=== PATIENT | male | born 1980 | race Two or more races ===

== ENCOUNTER 2025-02-09 10:51 | Outpatient (AMB) | payer OTHER, SELFPAY ==
--- NOTE | 2025-02-09 11:09 | A.OFFVIS_ITS ---
Intake Visit Reasons: fertility consult Intake Note: New Patient presents for initial visit for fertility consult Urology Medications: none Blood Thinner: none [employer] Required: Yes Accompanied by: Spouse Allergies No Known Allergies Allergy (Verified 02/09/25 11:32) HPI Comments Details: Lluvia is a very pleasant 44-year-old [place]olese-speaking male patient who was accompanied by his significant other at today's office visit. He presents to the office today as a new patient for infertility. In discussion with the patient today he reports having had follow-up with [facility] through [facility] and recommendations were made for urology referral as low motility and low morphology was noted on semen analysis from 08/28/2024 and 09/27. In review of patient's chart it appears labs 11/28 Testosterone 373 11/28 FSH 5.9 In discussion with the patient today he reports a longstanding he attempting to conceive over the last 20 years however has been unsuccessful. He discusses his has currently undergone infertility workup with [facility] however upon examination of his workup abnormalities within the semen analysis were noted. He denies having had any history of trauma. He denies any known genetic abnormalities, recreational drug use, smoking, and or alcohol abuse. We discussed potential causes of infetrtility as well as further work up to include labs and repeat semen analysis with fellows kit. All questions were answered. He otherwise denies any bothersome urinary issues. Plan For the current infertility issue as a result of the male partner's sperm motility and mobility problems, I propose conducting a comprehensive semen analysis using a specialized kit for a more detailed evaluation. The couple is informed about refraining from ejaculation in the days leading up to sample collection to ensure optimal results. Further diagnostic evaluation and potential reproductive interventions will be based on the analysis outcomes. Patient was informed and verbally consented to the use of an ambient scribe for clinic note documentation during this visit. Discussion Notes I thoroughly discussed the issue of infertility with the patient, focusing on the abnormal sperm motility and mobility of her partner. I recommended performing a detailed semen analysis using a specialized Amanda kit to obtain more information. The patient was instructed on the process of collecting and submitting the semen sample to ensure its integrity. Consent was obtained after outlining the procedure's rationale, benefits, and potential outcomes, including discussions around possible in vitro fertilization. The couple was also advised about the ideal timing and frequency of intercourse during the fertile period to enhance conception chances. Review of Systems Const All systems reviewed & are unremarkable except as noted in HPI and below Physical Exam Const General: cooperative, healthy appearing, comfortable, no acute distress, well developed, alert and awake Orientation/consciousness: patient oriented x3 Limitations: language barrier HEENT Head: Yes normal to inspection, Yes normocephalic and Yes atraumatic Ears: hearing grossly normal bilaterally Eyes General: appearance normal, both eyes and all related structures Neck Neck: Yes normal visual inspection and Yes trachea midline Chest Chest palpation & inspection: normal inspection of the chest Resp Effort & Inspection: normal respiratory effort and able to speak in complete sentences Cardio Rate: regular rate GI Inspection: Yes normal to inspection General: Yes no CVA tenderness Back/Spine/Pelvis Back: no CVA tenderness Skin General skin exam: no rashes or lesions noted Neuro General: patient oriented x3 Extrem General: Yes normal to inspection Psych Appearance: grossly normal and well kempt Mental Status: mental status grossly normal Speech and movement: Normal speech and movement present and Clear speech present Affect: normal affect Attitude: cooperative Thought process: Normal thought process present Thought content: Normal thought content present Insight: Fair insight present (Psych) Judgement: Fair judgement present (Psych) Results AMB Urinalysis, Automated UA Leukoctes 0 Kevin/uL Last Edit by [employer] on 02/09/25 11:34 UA Nitrite Last Edit by [employer] on 02/09/25 11:34 UA Urobilinogen 0.2 mg/dL Last Edit by [employer] on 02/09/25 11:34 UA Protein 0 mg/dL Last Edit by [employer] on 02/09/25 11:34 UA pH 6.0 Last Edit by [employer] on 02/09/25 11:34 UA Blood 0 Fab/uL Last Edit by [employer] on 02/09/25 11:34 UA Specific [place] 0 Last Edit by Yaw Chung on 02/09/25 11:34 UA Ketone Last Edit by Yaw Chung on 02/09/25 11:34 UA Bilirubin 0 mg/dL Last Edit by Yaw Chung on 02/09/25 11:34 UA Glucose 0 mg/dL Last Edit by Yaw Chung on 02/09/25 11:34 Results Reviewed Results Reviewed: Laboratory Last Values Urine pH (Auto) 6.0 02/09/25 11:33 Specific [place] (Auto) 0 02/09/25 11:33 Urine Protein (Auto) 0 mg/dL 02/09/25 11:33 Glucose (UA)(Auto) 0 mg/dL 02/09/25 11:33 Urine Blood (Auto) 0 Fab/uL 02/09/25 11:33 Urine Bilirubin (Auto) 0 mg/dL 02/09/25 11:33 Urine Urobilinogen (Auto) 0.2 mg/dL 02/09/25 11:33 Leukocyte Esterase (Auto) 0 Kevin/uL 02/09/25 11:33 Assessment & Plan Assessment & Plan (1) Infertility counseling: Code(s): Z31.69 - Encounter for other general counseling and advice on procreation Category: Medical Plan Previous records were reviewed Discussed obtaining fellows kit x2 for further assessment evaluation Will obtain labs as discussed. He denies any bothersome urinary issues or concerns. He reports to be happy with current voiding parameters. Follow-up with Dr. Jasmine in 3 months with fellows kit x2 to be completed; or sooner with any issues, concerns, and or questions. Orders: Orders Lutenizing Hormone Today Z31.69 - Encounter for other general counseling and advice on procreation Testosterone, Free/Total Today Z31.69 - Encounter for other general counseling and advice on procreation Follicle Stimulating Hormone Today Z31.69 - Encounter for other general counseling and advice on procreation Estradiol Ultra Sensitive Today E29.1 - Testicular hypofunction AMB Urinalysis Automated Today Z13.9 - Encounter for screening, unspecified Prolactin Today Z31.69 - Encounter for other general counseling and advice on procreation Sex Hormone Binding Globulin Today Z31.69 - Encounter for other general counseling and advice on procreation Prostate Specific Antigen Today Z31.69 - Encounter for other general counseling and advice on procreation Patient Instructions: The patient had an opportunity to ask questions regarding the treatment plan. All questions were answered. Physical exam, labs, and imaging were discussed and reviewed in detail. As well as risks, benefits, and discussion of treatment choices. No major barriers to understanding were identified. The patient expressed understanding and agreement with the above treatment plan. The patient was made aware they should contact our office by phone for worsening of their current condition, the appearance of new symptoms, or with any questions or concerns. Compliance is encouraged with any medications and follow up testing that is ordered. It is a privilege to be allowed the opportunity to participate in? your urological care.? Again, if you have any questions or concerns If you have any questions or concerns please do not hesitate to contact me. The office is [phone]. This note is constructed using voice recognition software. While every effort has been made to ensure accuracy printer slotter feeder errors may have been included. Yours sincerely, DREW Dill Coding Level of Care Code New Pt Level 4 (67499) Diagnoses Infertility counseling Z31.69 Time Spent (min) 35
== END 2025-02-09 12:17 | disposition home or self-care (01) ==
PROVIDERS: Visit Provider Nurse Practitioner Family
DX: Z31.69 Encounter for other general counseling and advice on procreation (principal); Z13.9 Encounter for screening, unspecified
CPT/HCPCS: 99204

== ENCOUNTER → 2025-02-09 10:51 | Outpatient (BNVA) | payer OTHER, SELFPAY | PROVIDERS: Visit Provider Nurse Practitioner Family | DX: Z31.69 Encounter for other general counseling and advice on procreation (principal) | CPT/HCPCS: 81003; 99202 ==

== ENCOUNTER 2025-02-10 08:17 | Outpatient (REF) | payer OTHER, SELFPAY ==
[2025-02-10 11:33] LABS: Prostate Specific Antigen 0.67 ng/mL (<0.05-4.0)
[2025-02-11 06:43] LABS: Lutenizing Hormone 3.6 mIU/mL (1.5-9.3); Prolactin 5.9 ng/mL (2.0-18.0); Sex Hormone Binding Globulin 22 nmol/L (10-50)
[2025-02-16 11:13] LABS: Testosterone, Free 81.2 pg/mL (35.0-155.0); Testosterone, Total 360 ng/dL (250-1100)
[2025-02-23 04:44] LABS: Estradiol Ultra Sensitive 35 pg/mL (< OR = 29)
== END 2025-02-10 08:18 | disposition home or self-care (01) ==
LOC: HO.HMGCLDS 08:17
PROVIDERS: Visit Provider Nurse Practitioner Family
DX: E29.1 Testicular hypofunction (principal); Z31.69 Encounter for other general counseling and advice on procreation
CPT/HCPCS: 36415; 82670; 83001; 83002; 84146; 84153; 84270; 84402; 84403